=== PATIENT | male | born 1955 | race Caucasian/White ===

== ENCOUNTER 2019-06-15 07:51 | Day surgery (SDC) | payer BC ==
[~2019-06-15 07:51] MED LIST: Lactated Ringers 1,000 ML IV SCH; Sodium Chloride 0.9% 10 ML SDV IV PRN; Sodium Chloride 0.9% 10 ML Syringe FLUSH PRN; Sodium Chloride 0.9% 2.5 ML Syringe FLUSH PRN; ceFAZolin 1 GM in Premix Bag 1 BAG IV ONE
[2019-06-15] MEDS ORDERED: Bupivacaine 0.5% 10 ML SDV ONE (07:55)
[2019-06-15] MEDS ORDERED: Lidocaine 1% 20 ML MDV ONE (07:56)
[2019-06-15] MEDS ORDERED: Midazolam 1 MG/ML 2 ML SDV ONE (08:49)
[2019-06-15] MEDS ORDERED: ceFAZolin 1 GM Vial ONE (08:54)
--- NOTE | 2019-06-15 12:10 | OR ---
SURGEON: Gm Amaya M.D. 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 OPERATION: Circumcision. DESCRIPTION OF PROCEDURE: The patient was placed in the supine position. External genital area was prepped and draped in sterile drapes. The penis was circumferentially injected with 1% lidocaine. The diseased foreskin was removed. Bleeding points were either tied with 4-0 chromic or coagulated. Skin edges were reapproximated using interrupted 4-0 chromic sutures. The patient tolerated the procedure well. Bleeding was minimal, under 2 mL. The patient was moved back to his room in stable condition. FLOYD / [place] /[id number]
[2019-06-15] MEDS ORDERED: Non-Formulary Medication 1 Each (Atorvastatin Calcium [Atorvastatin Calcium] 80 MG) PO SCH (21:00)
[2019-06-15] MEDS ORDERED: metFORMIN 500 MG Tab PO SCH (21:00)
[2019-06-16] MEDS ORDERED: Metoprolol Succinate 25 MG Tab.ER PO SCH (09:00)
[2019-06-16] MEDS ORDERED: Glimepiride 4 MG Tab PO SCH (09:00)
[2019-06-16] MEDS ORDERED: ISOSORBIDE DINITRATE 30 MG PO SCH (09:00)
[2019-06-16] MEDS ORDERED: Aspirin 81 MG Tab.EC PO SCH (09:00)
[2019-06-16] MEDS ORDERED: Clopidogrel 75 MG Tab PO SCH (09:00)
== END 2019-06-15 10:44 ==
LOC: MW.SDS 07:51
PROVIDERS: ATTEND Urology
DX: N48.0 Leukoplakia of penis (principal); E11.9 Type 2 diabetes mellitus without complications; I25.10 Atherosclerotic heart disease of native coronary artery without angina pectoris
CPT/HCPCS: 54161; J0690; J2001; J3490; J7120; 88305